=== PATIENT | female | born 1995 | race Caucasian/White ===

== ENCOUNTER 2021-09-26 22:14 | Emergency (ER) | payer MEDICAID ==
[~2021-09-26] VITALS: Ht 165.1 cm; Wt 77.1 kg
[2021-09-26 22:29] VITALS: BP 123/78
--- NOTE | 2021-09-26 22:35 | NUR ---
PT TO LOBBY.
[2021-09-26 23:54] LABS: APPEARANCE,URINE SL CLOUDY (CLEAR); BILIRUBIN,URINE NEGATIVE (NEGATIVE); BLOOD, URINE 2+ (NEGATIVE); COLOR,URINE YELLOW (YELLOW); LEUKOCYTE ESTERASE ,URINE TRACE (NEGATIVE); NITRITE, URINE NEGATIVE (NEGATIVE); UGLUCOSE NEGATIVE (NEGATIVE)
[2021-09-27 01:38] LABS: RBC,URINE 0-5 /HPF (0-5); WBC,URINE 0-5 /HPF (0-5)
[2021-09-27] MEDS ORDERED: KETOROLAC 60 MG/2 ML VIAL IM ONE (01:40)
[2021-09-27] MEDS ORDERED: CIPR500T4 PO (01:44)
[2021-09-27] MEDS ORDERED: ONDA8TAB87 PO (01:44)
[2021-09-27] MEDS ORDERED: IBUP-2213 PO (01:44)
--- NOTE | 2021-09-27 01:50 | NUR ---
Patient discharged with v/s stable. Written and verbal after care instructions given and explained. Patient alert, oriented and verbalized understanding of instructions. Ambulatory with steady gait. All questions addressed prior to discharge. ID band removed. Patient advised to follow up with PMD. Rx of ZOFRAN, MOTRIN, AND CIPRO given. Patient educated on indication of medication including possible reaction and side effects. Opportunity to ask questions provided and answered.
== END 2021-09-27 01:50 | disposition home or self-care (01) ==
LOC: MED 22:14
DX: N39.0 Urinary tract infection, site not specified (principal); F17.200 Nicotine dependence, unspecified, uncomplicated
CPT/HCPCS: 81001; 81025; 87086; 96372; 99284; J1885